=== PATIENT | male | born 1980 | race Caucasian/White ===

== ENCOUNTER → 2021-09-21 10:16 | Outpatient (BNVA) | payer BC, SELFPAY | PROVIDERS: PCP Nurse Practitioner Family; Visit Provider Internal Medicine | DX: Z51.81 Encounter for therapeutic drug level monitoring (principal); F33.9 Major depressive disorder, recurrent, unspecified; F14.90 Cocaine use, unspecified, uncomplicated; Z72.89 Other problems related to lifestyle | CPT/HCPCS: 80305 ==

== ENCOUNTER → 2021-10-14 13:11 | Outpatient (BNVA) | payer BC, SELFPAY | PROVIDERS: PCP Nurse Practitioner Family; Visit Provider Internal Medicine | DX: F10.10 Alcohol abuse, uncomplicated (principal); Z51.81 Encounter for therapeutic drug level monitoring; Z79.899 Other long term (current) drug therapy | CPT/HCPCS: 80305; 96372; J2315 ==

== ENCOUNTER → 2021-11-11 13:16 | Outpatient (BNVA) | payer BC, SELFPAY | PROVIDERS: Visit Provider Internal Medicine | DX: F10.10 Alcohol abuse, uncomplicated (principal); F33.9 Major depressive disorder, recurrent, unspecified | CPT/HCPCS: 80305; 96372; J2315 ==

== ENCOUNTER → 2021-12-09 13:18 | Outpatient (BNVA) | payer BC, SELFPAY | PROVIDERS: PCP Nurse Practitioner Family; Visit Provider Internal Medicine | DX: Z51.81 Encounter for therapeutic drug level monitoring (principal); F10.10 Alcohol abuse, uncomplicated | CPT/HCPCS: 80305; 96372; J2315 ==

== ENCOUNTER → 2022-01-27 10:13 | Outpatient (BNVA) | payer BC, SELFPAY | PROVIDERS: Visit Provider Internal Medicine | DX: Z51.81 Encounter for therapeutic drug level monitoring (principal); F10.10 Alcohol abuse, uncomplicated | CPT/HCPCS: 80305; 96372; J2315 ==

== ENCOUNTER → 2022-04-03 13:30 | Outpatient (BNVA) | payer BC, SELFPAY | PROVIDERS: PCP Nurse Practitioner Family; Visit Provider Internal Medicine | DX: F10.10 Alcohol abuse, uncomplicated (principal); Z51.81 Encounter for therapeutic drug level monitoring | CPT/HCPCS: J2315 ==

== ENCOUNTER 2022-04-13 07:30 | Outpatient (REF) | payer BC, SELFPAY ==
[2022-04-13 11:21] LABS: MANUAL DIFF FLAG NO
[2022-04-13 11:26] LABS: Basophils Absolute Auto 0.1 X10*3/uL (0.0-0.2); Basophils Percent Auto 0.7 % (0-2); Eosinophils Absolute Auto 0.1 X10*3/uL (0.0-0.4); Eosinophils Percent Auto 1.5 % (0-4); Hematocrit 47.5 % (42.0-52.0); Hemoglobin 16.3 g/dl (14.0-18.0); Imm Gran Abs Auto 0.04 X10*3/uL (0.00-0.03); Imm Gran Pct Auto 0.5 % (0.0-0.4); Lymphocytes Absolute Auto 2.3 X10*3/uL (1.2-4.9); Lymphocytes Percent Auto 30.1 % (20-40); Mean Corpuscular HGB Conc 34.3 g/dl (31.0-36.0); Mean Corpuscular Hemoglobin 31.2 pg (27.0-33.0); Mean Corpuscular Volume 90.8 fL (80.0-98.0); Mean Platelet Volume 9.6 fL (9.4-12.4); Monocytes Absolute Auto 0.9 X10*3/uL (0.1-1.2); Monocytes Percent Auto 12.1 % (2-11); Neutrophils Absolute Auto 4.2 x10*3/uL (2.0-8.3); Neutrophils Percent Auto 55.1 % (45-73); Platelet Count 271 X10*3/uL (160-400); Red Blood Count 5.23 X10*6/uL (4.60-5.80); Red Cell Distribution Width 13.7 % (11.0-16.0); White Blood Count 7.6 X10*3/uL (4.8-10.8)
[2022-04-13 11:51] LABS: Alanine Aminotransferase 28 U/L (0-40); Albumin Level 4.5 g/dL (3.5-5.0); Alkaline Phosphatase 68 U/L (39-117); Anion Gap 15 (12-20); Aspartate Amino Transferase 33 U/L (5-37); Bilirubin Direct 0.3 mg/dL (0.0-0.5); Bilirubin Total 1.2 mg/dL (0.0-1.0); Blood Urea Nitrogen 22 mg/dL (9-16); Calcium 9.2 mg/dL (8.4-10.2); Carbon Dioxide 22 mmol/L (22-29); Chloride 106 mmol/L (96-108); Cholesterol 196 mg/dL; Estimated Glomerular Filt Rate > 60; Glucose Fasting 81 mg/dL (60-99); HDL Cholesterol 34 mg/dL; LDL Cholesterol Calculated 147 mg/dl; Potassium 4.2 mmol/L (3.3-5.1); Sodium 139 mmol/L (135-145); Triglycerides 78 mg/dL
[2022-04-13 12:16] LABS: TSH reflex Free T4 0.99 uIU/mL (0.32-4.0)
[2022-04-13 13:46] LABS: Appearance Urine Clear; Color Urine Dark Yellow; Glucose Urine UA Negative (Negative); Leukocyte Esterase Urine Negative (Negative); Nitrite Urine Negative (Negative); PH 5.5 (5.0-8.0); Specific Gravity - Urine 1.025 (1.005-1.025); Urine Blood Negative (Negative); Urine Ketones 15 mg/dL (Negative); Urine Protein Negative (Neg-Trace)
== END 2022-04-13 07:31 | disposition home or self-care (01) ==
LOC: HO.HMGCLDS 07:30
PROVIDERS: PCP Nurse Practitioner Family; Visit Provider Nurse Practitioner Family
DX: Z00.00 Encounter for general adult medical examination without abnormal findings (principal); F10.10 Alcohol abuse, uncomplicated
CPT/HCPCS: 36415; 80053; 80061; 80076; 81003; 82248; 84443; 85025

== ENCOUNTER → 2022-04-28 15:02 | Outpatient (BNVA) | payer BC, SELFPAY | PROVIDERS: PCP Nurse Practitioner Family; Visit Provider Internal Medicine | DX: F10.10 Alcohol abuse, uncomplicated (principal); Z51.81 Encounter for therapeutic drug level monitoring; Z79.899 Other long term (current) drug therapy | CPT/HCPCS: J2315 ==

== ENCOUNTER → 2022-05-26 13:05 | Outpatient (BNVA) | payer BC, SELFPAY | PROVIDERS: PCP Nurse Practitioner Family; Visit Provider Internal Medicine | DX: Z51.81 Encounter for therapeutic drug level monitoring (principal); F10.10 Alcohol abuse, uncomplicated | CPT/HCPCS: 96372; J2315 ==

== ENCOUNTER 2022-06-14 23:08 | Emergency (ER) | payer BC, SELFPAY ==
[2022-06-14 23:18] VITALS: BP 162/100; PULSE 76; RESP 15; TEMP 36.9; O2SAT 100; BMI 26.4
[2022-06-14 23:35] LABS: Basophils Absolute Auto 0.1 X10*3/uL (0.0-0.2); Basophils Percent Auto 0.6 % (0-2); Eosinophils Absolute Auto 0.2 X10*3/uL (0.0-0.4); Eosinophils Percent Auto 1.9 % (0-4); Hematocrit 48.6 % (42.0-52.0); Imm Gran Abs Auto 0.03 X10*3/uL (0.00-0.03); Imm Gran Pct Auto 0.4 % (0.0-0.4); Lymphocytes Absolute Auto 3.8 X10*3/uL (1.2-4.9); Lymphocytes Percent Auto 43.9 % (20-40); MANUAL DIFF FLAG NO; Mean Corpuscular Hemoglobin 29.8 pg (27.0-33.0); Mean Corpuscular Volume 85.3 fL (80.0-98.0); Mean Platelet Volume 8.3 fL (9.4-12.4); Monocytes Absolute Auto 0.5 X10*3/uL (0.1-1.2); Monocytes Percent Auto 5.6 % (2-11); Neutrophils Absolute Auto 4.1 x10*3/uL (2.0-8.3); Neutrophils Percent Auto 47.6 % (45-73); Platelet Count 216 X10*3/uL (160-400); White Blood Count 8.6 X10*3/uL (4.8-10.8)
[2022-06-14 23:49] LABS: Anion Gap 20 (12-20); Blood Urea Nitrogen 18 mg/dL (9-16); Calcium 8.6 mg/dL (8.4-10.2); Carbon Dioxide 20 mmol/L (22-29); Chloride 110 mmol/L (96-108); Creatinine Clr Calc Pharmacy 107.7; Estimated Glomerular Filt Rate > 60; Ethanol 331 mg/dL; Glucose Random 108 mg/dL (60-115); Potassium 4.2 mmol/L (3.3-5.1); Sodium 146 mmol/L (135-145)
[2022-06-15 00:30] LABS: Alanine Aminotransferase 27 U/L (0-40); Albumin Level 4.4 g/dL (3.5-5.0); Alkaline Phosphatase 87 U/L (39-117); Aspartate Amino Transferase 28 U/L (5-37); Bilirubin Direct < 0.2 mg/dL (0.0-0.5); Bilirubin Total 0.3 mg/dL (0.0-1.0); Total Protein 7.1 g/dL (6.5-8.0)
[2022-06-15 00:35] VITALS: BP 139/83; PULSE 75; RESP 18; TEMP 36.7; O2SAT 95
[2022-06-15 00:38] LABS: Ammonia 36 umol/L (13-55)
[2022-06-15 01:06] LABS: Amphetamine Screen Urine Not Detected (Not Detect); Barbiturates, Urine Not Detected (Not Detect); Benzodiazepines Screen Urine Not Detected (Not Detect); Cannabinoid Screen Urine Not Detected (Not Detect); Cocaine Screen Urine Not Detected (Not Detect); Fentanyl, urine Not Detected (Not Detect); Opiate Screen Urine Not Detected (Not Detect); Phencyclidine Screen Urine Not Detected (Not Detect)
[2022-06-15 01:07] LABS: Appearance Urine Clear; Color Urine Yellow; Glucose Urine UA Negative (Negative); Leukocyte Esterase Urine Negative (Negative); Nitrite Urine Negative (Negative); PH 5.5 (5.0-9.0); Specific Gravity - Urine 1.025 (1.005-1.025); Urine Blood Negative (Negative); Urine Ketones Trace mg/dL (Negative); Urine Protein Negative (Neg-Trace)
--- NOTE | 2022-06-15 01:32 | ED.GENADULT ---
HPI - General Adult General Chief complaint: Altered Mental Status Stated complaint: vomiting, confusion, memory loss Time Seen by Provider: 06/15/22 01:31 Source: patient Mode of arrival: ambulatory Limitations: no limitations History of Present Illness HPI narrative: Patient history alcohol abuse been drinking heavily lately also taking Wellbutrin for depression, for last 2 days patient drinking heavy and unable to hold any solid stone vomiting multiple times has some epigastric pain Related Data Previous Rx's Medication Instructions Recorded finasteride 5 mg tablet 5 mg PO DAILY #90 tabs 09/09/20 clonidine HCl 0.1 mg tablet 0.1 mg PO TID PRN alcohol 04/03/22 withdrawal #21 tabs hydroxyzine pamoate 25 mg capsule 25 mg PO TID PRN itching #21 caps 04/03/22 (Vistaril) naltrexone microspheres 380 mg 380 mg IM Q4W 30 days #1 ea 04/21/22 intramuscular suspension,extended release (Vivitrol) acamprosate 333 mg tablet,delayed 666 mg PO TID 30 days #180 tabs 04/28/22 release naltrexone microspheres 380 mg 380 mg IM Q4W 30 days #1 ea 04/28/22 intramuscular suspension,extended release (Vivitrol) rosuvastatin 40 mg tablet 40 mg PO DAILY #90 tabs 04/30/22 bupropion HCl 150 mg 24 hr tablet, 150 mg PO QAM 90 days #90 tabs 05/04/22 extended release (Wellbutrin XL) amoxicillin 875 mg-potassium 1 tab PO BID 10 days #20 tabs 05/22/22 clavulanate 125 mg tablet lorazepam 1 mg tablet (Ativan) 1 mg PO TID PRN alcohol withdrawal 06/15/22 #14 tabs ondansetron 4 mg disintegrating 4 mg PO Q6-8H PRN nausea and 06/15/22 tablet vomiting #15 tabs pantoprazole 40 mg tablet,delayed 40 mg PO DAILY #30 tabs 06/15/22 release (Protonix) Allergies Allergy/AdvReac Type Severity Reaction Status Date / Time No Known Allergies Allergy Verified 06/14/22 23:22 Review of Systems Review of Systems: Yes all other systems are reviewed and are negative PMFSH Past Medical History Medical History Alcohol abuse Alcohol withdrawal Depression, major, recurrent Family History Family History Brother Substance use disorder Social History Social History Housing: House Patient Tobacco Use Status: Never used Tobacco e-Cigarette/Vaping Use: Never Used Advance Directives: No Advance Directives Information Provided: No service: No Current occupational status: employed Cognitive needs: No Hearing needs: No Vision needs: No Physical Exam ED Vital Signs: Vital Signs - 24 hr 06/14/22 23:18 06/15/22 00:35 06/15/22 02:00 Temperature 98.5 F 98.1 F 98.0 F Pulse Rate 76 75 63 Respiratory Rate 15 18 16 Blood Pressure 162/100 H 139/83 145/96 H Pulse Oximetry 100 95 96 Oxygen Delivery Method Room Air Room Air Room Air 06/15/22 03:53 Temperature 97.7 F Pulse Rate 66 Respiratory Rate 18 Blood Pressure 123/52 L Pulse Oximetry 98 Oxygen Delivery Method Room Air BMI result Body Mass Index 26.4 Appearance: Alert. Oriented X3. No acute distress. and she Eyes: no pallor or icterus ENT: Pharynx normal. Oral Mucosa moist Neck: Normal inspection. Neck supple. CVS: Normal heart rate and rhythm. Pulses normal. Respiratory: No respiratory distress. Equal air entry bilateral, no wheezing/rales/rhonchi Abdomen: Soft , epigastric tenderness, Bowel sounds are present, no mass palpable, no CVA tenderness Skin: Skin warm and dry. Normal skin color. Normal skin turgor. Extremities: No lower extremity edema. No calf tenderness Neuro: Oriented X 3. No motor deficit. No sensory deficit.No cerebellar signs , cranial nerves II-XII intact Medical Decision Making MDM Narrative Medical decision making narrative: patient alcoholic does not want to go to detox will give IV fluids symptomatic treatment plan to discharge home Lab Data Lab results reviewed: Yes I reviewed the patient's lab results. Result diagrams: 06/14/22 23:28 06/14/22 23:28 Labs: Lab Results 06/14/22 06/14/22 06/14/22 Range/Units 23:28 23:28 23:28 WBC 8.6 (4.8-10.8) X10*3/uL RBC 5.70 (4.60-5.80) X10*6/uL Hgb 17.0 (14.0-18.0) g/dl Hct 48.6 (42.0-52.0) % MCV 85.3 (80.0-98.0) fL MCH 29.8 (27.0-33.0) pg MCHC 35.0 (31.0-36.0) g/dl RDW 12.0 (11.0-16.0) % Plt Count 216 (160-400) X10*3/uL MPV 8.3 L (9.4-12.4) fL Immature Gran % (Auto) 0.4 (0.0-0.4) % Neut % (Auto) 47.6 (45-73) % Lymph % (Auto) 43.9 H (20-40) % [place] % (Auto) 5.6 (2-11) % Eos % (Auto) 1.9 (0-4) % Baso % (Auto) 0.6 (0-2) % Lymph # (Auto) 3.8 (1.2-4.9) X10*3/uL [place] # (Auto) 0.5 (0.1-1.2) X10*3/uL Eos # (Auto) 0.2 (0.0-0.4) X10*3/uL Baso # (Auto) 0.1 (0.0-0.2) X10*3/uL Abs Immat Gran (auto) 0.03 (0.00-0.03) X10*3/uL Absolute Neuts (auto) 4.1 (2.0-8.3) x10*3/uL Absolute Nucleated RBC 0.000 (0.0-0.012) X10*3/uL Nucleated RBC % (auto) 0.0 (0.0-0.2) /100WBC Sodium 146 H (135-145) mmol/L Potassium 4.2 (3.3-5.1) mmol/L Chloride 110 H (96-108) mmol/L Carbon Dioxide 20 L (22-29) mmol/L Anion Gap 20 (12-20) BUN 18 H (9-16) mg/dL Creatinine 1.03 (0.5-1.4) mg/dL Estim Creat Clear Calc 107.7 Estimated GFR > 60 Random Glucose 108 (60-115) mg/dL Calcium 8.6 D (8.4-10.2) mg/dL Magnesium 2.0 (1.6-2.6) mg/dL Total Bilirubin 0.3 (0.0-1.0) mg/dL Direct Bilirubin < 0.2 (0.0-0.5) mg/dL AST 28 (5-37) U/L ALT 27 (0-40) U/L Alkaline Phosphatase 87 D (39-117) U/L Ammonia 36 (13-55) umol/L Total Protein 7.1 (6.5-8.0) g/dL Albumin 4.4 (3.5-5.0) g/dL Lipase 19 (8-78) U/L Urine Color Urine Appearance Urine pH (5.0-9.0) Ur Specific Ev[place]eline (1.005-1.025) Urine Protein (Neg-Trace) mg/dL Urine Glucose (UA) (Negative) mg/dL Urine Ketones (Negative) mg/dL Urine Blood (Negative) Urine Nitrite (Negative) Ur Leukocyte Esterase (Negative) Urine Opiates Screen (Not Detect) Urine Fentanyl Screen (Not Detect) Ur Barbiturates Screen (Not Detect) Ur Phencyclidine Scrn (Not Detect) Ur Amphetamines Screen (Not Detect) U Benzodiazepines Scrn (Not Detect) Urine Cocaine Screen (Not Detect) U Marijuana (THC) Screen (Not Detect) Ethyl Alcohol 331 H* mg/dL 06/15/22 06/15/22 Range/Units 00:40 00:40 WBC (4.8-10.8) X10*3/uL RBC (4.60-5.80) X10*6/uL Hgb (14.0-18.0) g/dl Hct (42.0-52.0) % MCV (80.0-98.0) fL MCH (27.0-33.0) pg MCHC (31.0-36.0) g/dl RDW (11.0-16.0) % Plt Count (160-400) X10*3/uL MPV (9.4-12.4) fL Immature Gran % (Auto) (0.0-0.4) % Neut % (Auto) (45-73) % Lymph % (Auto) (20-40) % [place] % (Auto) (2-11) % Eos % (Auto) (0-4) % Baso % (Auto) (0-2) % Lymph # (Auto) (1.2-4.9) X10*3/uL [place] # (Auto) (0.1-1.2) X10*3/uL Eos # (Auto) (0.0-0.4) X10*3/uL Baso # (Auto) (0.0-0.2) X10*3/uL Abs Immat Gran (auto) (0.00-0.03) X10*3/uL Absolute Neuts (auto) (2.0-8.3) x10*3/uL Absolute Nucleated RBC (0.0-0.012) X10*3/uL Nucleated RBC % (auto) (0.0-0.2) /100WBC Sodium (135-145) mmol/L Potassium (3.3-5.1) mmol/L Chloride (96-108) mmol/L Carbon Dioxide (22-29) mmol/L Anion Gap (12-20) BUN (9-16) mg/dL Creatinine (0.5-1.4) mg/dL Estim Creat Clear Calc Estimated GFR Random Glucose (60-115) mg/dL Calcium (8.4-10.2) mg/dL Magnesium (1.6-2.6) mg/dL Total Bilirubin (0.0-1.0) mg/dL Direct Bilirubin (0.0-0.5) mg/dL AST (5-37) U/L ALT (0-40) U/L Alkaline Phosphatase (39-117) U/L Ammonia (13-55) umol/L Total Protein (6.5-8.0) g/dL Albumin (3.5-5.0) g/dL Lipase (8-78) U/L Urine Color Yellow Urine Appearance Clear Urine pH 5.5 (5.0-9.0) Ur Specific Ev[place]eline 1.025 (1.005-1.025) Urine Protein Negative (Neg-Trace) mg/dL Urine Glucose (UA) Negative (Negative) mg/dL Urine Ketones Trace (Negative) mg/dL Urine Blood Negative (Negative) Urine Nitrite Negative (Negative) Ur Leukocyte Esterase Negative (Negative) Urine Opiates Screen Not Detected (Not Detect) Urine Fentanyl Screen Not Detected (Not Detect) Ur Barbiturates Screen Not Detected (Not Detect) Ur Phencyclidine Scrn Not Detected (Not Detect) Ur Amphetamines Screen Not Detected (Not Detect) U Benzodiazepines Scrn Not Detected (Not Detect) Urine Cocaine Screen Not Detected (Not Detect) U Marijuana (THC) Screen Not Detected (Not Detect) Ethyl Alcohol mg/dL Discharge Plan Discharge Clinical Impression: Alcohol abuse Patient Disposition: Home, Self-Care Instructions: Alcohol Use Disorder (ED) Additional Instructions: stop drinking alcohol Ativan for withdrawal and anxiety follow-up with detox Prescriptions: New lorazepam [Ativan] 1 mg tablet 1 mg PO TID PRN (Reason: alcohol withdrawal) Qty: 14 0RF pantoprazole [Protonix] 40 mg tablet,delayed release (DR/EC) 40 mg PO DAILY Qty: 30 0RF ondansetron 4 mg tablet,disintegrating 4 mg PO Q6-8H PRN (Reason: nausea and vomiting) Qty: 15 0RF No Action finasteride 5 mg tablet 5 mg PO DAILY Qty: 90 2RF Vivitrol 380 mg suspension,extended rel recon 380 mg IM Q4W 30 Days Qty: 1 5RF rosuvastatin 40 mg tablet 40 mg PO DAILY Qty: 90 0RF amoxicillin-pot clavulanate 875-125 mg tablet 1 tab PO BID 10 Days Qty: 20 0RF bupropion HCl [Wellbutrin XL] 150 mg tablet extended release 24 hr 150 mg PO QAM 90 Days Qty: 90 0RF clonidine HCl 0.1 mg tablet 0.1 mg PO TID PRN (Reason: alcohol withdrawal) Qty: 21 1RF hydroxyzine pamoate [Vistaril] 25 mg capsule 25 mg PO TID PRN (Reason: itching) Qty: 21 0RF Vivitrol 380 mg suspension,extended rel recon 380 mg IM Q4W 30 Days Qty: 1 5RF acamprosate 333 mg tablet,delayed release (DR/EC) 666 mg PO TID 30 Days Qty: 180 5RF
[2022-06-15] MEDS: 0.9 % Sodium Chloride 1,000 ML 999 ML IV ×2 (01:53→02:46)
[2022-06-15] MEDS: Midazolam HCl/PF 2 MG/2 ML VIAL 1 MG IVPUSH (01:53)
[2022-06-15] MEDS: Famotidine/PF 20 MG/2 ML VIAL IVPUSH (01:54)
[2022-06-15] MEDS: ondansetron HCL 4 MG/2 ML VIAL IVPUSH (01:54)
--- NOTE | 2022-06-15 01:57 | PC.NURSE ---
pt a&ox3, vss, 20G IV placed left hand, 1L NS running, medicated per provider order. no new orders at this time.
[2022-06-15 02:00] VITALS: BP 145/96; PULSE 63; RESP 16; TEMP 36.7; O2SAT 96
[2022-06-15 02:02] LABS: Lipase 19 U/L (8-78)
--- NOTE | 2022-06-15 02:42 | PC.NURSE ---
pt a&ox3, hypertensive, other vss, CIWA = 0, pt resting comfortably. no new orders at this time.
[2022-06-15 03:53] VITALS: BP 123/52; PULSE 66; RESP 18; TEMP 36.5; O2SAT 98
--- NOTE | 2022-06-15 05:05 | PC.NURSE ---
pt sleeping, no sign of distress. Reviewed discharge instructions with pt. pt verbalized understanding.
[2022-06-15 05:45] VITALS: BP 112/65; PULSE 61; RESP 16; TEMP 36.7; O2SAT 98
== END 2022-06-15 05:46 | disposition home or self-care (01) ==
PROVIDERS: Emergency Provider Internal Medicine; PCP Nurse Practitioner Family
DX: F10.10 Alcohol abuse, uncomplicated (principal); F33.1 Major depressive disorder, recurrent, moderate; Y90.8 Blood alcohol level of 240 mg/100 ml or more; Z20.822 Contact with and (suspected) exposure to COVID-19; Z79.899 Other long term (current) drug therapy
CPT/HCPCS: 36415; 80048; 80076; 80307; 81003; 82077; 82140; 83690; 83735; 85025; 96374; 96375; 99284; 99285; J2250; J2405

== ENCOUNTER 2022-06-16 20:23 | Emergency (ER) | payer BC, SELFPAY ==
--- NOTE | 2022-06-16 20:26 | ED.ALCOHOL ---
HPI - Alcohol General Chief Complaint: ETOH/Substance Use Stated Complaint: s12 etoh Time Seen by Provider: 06/16/22 20:26 Source: patient and EMS Mode of arrival: EMS Limitations: altered mental status (Intoxicated) History of Present Illness HPI narrative: 42-year-old male presents via EMS and police escort under Section 12 for ETOH intoxication. Patient's family called for a wellness check, patient has been drinking excessively on a daily basis. Drinks 3 pt of vodka after being discharged from this facility on the morning of 06/16/2022. Patient's family is concerned about his well-being. Patient is visibly intoxicated, slurring his words and smells of alcohol. Patient needs multiple redirections to answer questions, however he is polite and cooperative. MD complaint: alcohol intoxication and alcohol dependence Last drink: Just prior to admission Chronic alcohol use: Yes Previous visits for alcohol intoxication: Yes Recent trauma: No Associated symptoms: denies other symptoms Treatments prior to arrival: none Related Data Previous Rx's Medication Instructions Recorded finasteride 5 mg tablet 5 mg PO DAILY #90 tabs 09/09/20 clonidine HCl 0.1 mg tablet 0.1 mg PO TID PRN alcohol 04/03/22 withdrawal #21 tabs hydroxyzine pamoate 25 mg capsule 25 mg PO TID PRN itching #21 caps 04/03/22 (Vistaril) naltrexone microspheres 380 mg 380 mg IM Q4W 30 days #1 ea 04/21/22 intramuscular suspension,extended release (Vivitrol) acamprosate 333 mg tablet,delayed 666 mg PO TID 30 days #180 tabs 04/28/22 release naltrexone microspheres 380 mg 380 mg IM Q4W 30 days #1 ea 04/28/22 intramuscular suspension,extended release (Vivitrol) rosuvastatin 40 mg tablet 40 mg PO DAILY #90 tabs 04/30/22 bupropion HCl 150 mg 24 hr tablet, 150 mg PO QAM 90 days #90 tabs 05/04/22 extended release (Wellbutrin XL) amoxicillin 875 mg-potassium 1 tab PO BID 10 days #20 tabs 05/22/22 clavulanate 125 mg tablet lorazepam 1 mg tablet (Ativan) 1 mg PO TID PRN alcohol withdrawal 06/15/22 #14 tabs ondansetron 4 mg disintegrating 4 mg PO Q6-8H PRN nausea and 06/15/22 tablet vomiting #15 tabs pantoprazole 40 mg tablet,delayed 40 mg PO DAILY #30 tabs 06/15/22 release (Protonix) Allergies Allergy/AdvReac Type Severity Reaction Status Date / Time No Known Allergies Allergy Verified 06/14/22 23:22 Review of Systems Review of Systems: Yes Unobtainable due to mental status (Intoxicated) [facility] Past Medical History Attestation statement: The following information was validated with the patient. Source: old records reviewed Medical History Alcohol abuse Alcohol withdrawal Depression, major, recurrent Family History Family History Brother Substance use disorder Social History Social History Housing: House Alcohol intake: current Alcohol intake frequency: 3 or more drinks per day Alcohol type: hard liquor Patient Tobacco Use Status: Never used Tobacco e-Cigarette/Vaping Use: Never Used Use of substances other than those prescribed or required for medical reasons: No Advance Directives: No service: No Current occupational status: employed Cognitive needs: No Hearing needs: No Vision needs: No Physical Exam ED Vital Signs: Vital Signs - 24 hr 06/16/22 20:54 06/16/22 20:59 06/16/22 22:02 Temperature 98.5 F 98.5 F Pulse Rate 80 77 75 Respiratory Rate 17 77 H 16 Blood Pressure 148/96 H 148/96 H 137/84 Pulse Oximetry 97 97 96 Oxygen Delivery Method Room Air Room Air Room Air 06/17/22 00:53 06/17/22 03:09 06/17/22 03:51 Temperature 98.1 F 98.2 F 98.0 F Pulse Rate 67 67 63 Respiratory Rate 17 12 14 Blood Pressure 114/63 117/63 121/63 Pulse Oximetry 95 96 93 Oxygen Delivery Method Room Air Room Air Room Air 06/17/22 05:48 Temperature 98.9 F Pulse Rate 69 Respiratory Rate 17 Blood Pressure 117/67 Pulse Oximetry 95 Oxygen Delivery Method Room Air BMI result Body Mass Index 27.2 Appearance: Alert. Intoxicated. Eyes: Pupils equal, round and reactive to light. ENT: Pharynx normal. Neck: Normal inspection. Neck supple. CVS: Normal heart rate and rhythm. Pulses normal. Respiratory: No respiratory distress. Breath sounds normal. Abdomen: Soft and nontender. Skin: Skin warm and dry. Normal skin color. Normal skin turgor. Extremities: No lower extremity edema. Gait balanced and coordinated. Neuro: No motor deficit. No sensory deficit. Cranial nerves 2-12 intact. Course Course Course Narrative: 42-year-old male presents via EMS with police escort under section 12 for EtOH abuse. Patient's family called for wellness check, and states that he has been drinking excessively and they are concerned about finding him ? because of alcohol?. Patient was evaluated at this facility and discharged on 06/16/2020 to for similar circumstances. At this time will order blood alcohol level, as patient's family may consider Section 35. Patient states that he does not know why he drinks, denies suicidal and homicidal ideation, and is not interested in detox at this time. Patient states that he withdraws from alcohol, and may have seizure activities. At this time will place seizure pads, and cardiac monitoring we will give some Versed as we do not have Ativan or Valium at this time. Patient does not want phenobarbital as he does not want to be admitted for EtOH withdrawal. 22:00 lab values are within normal limits. ETOH 295. Seizure precautions are maintained. I again approaches patient regarding detox, patient is not interested in alcohol withdrawal treat with phenobarbital. Plan of care is to metabolize to [place]. Patient is not suicidal or homicidal, patient's family is attempting section 35. Physician observation at this time. MDM - Alcohol Differential Diagnosis Differential diagnosis: Likely alcohol dependence, alcohol withdrawal delirium, hypomagnesemia, alcohol intoxication, alcohol ketoacidosis and alcohol withdrawal syndrome Medical Records Attestation: I reviewed the patient's medical records. Lab Data Attestation: I reviewed the patient's lab results. Result diagrams: 06/16/22 21:14 06/16/22 21:14 Labs: Lab Results 06/16/22 06/16/22 06/16/22 Range/Units 21:14 21:14 21:14 WBC 7.8 (4.8-10.8) X10*3/uL RBC 5.88 H (4.60-5.80) X10*6/uL Hgb 17.4 (14.0-18.0) g/dl Hct 49.5 (42.0-52.0) % MCV 84.2 (80.0-98.0) fL MCH 29.6 (27.0-33.0) pg MCHC 35.2 (31.0-36.0) g/dl RDW 11.9 (11.0-16.0) % Plt Count 203 (160-400) X10*3/uL MPV 8.0 L (9.4-12.4) fL Immature Gran % (Auto) 0.4 (0.0-0.4) % Neut % (Auto) 58.8 (45-73) % Lymph % (Auto) 35.3 (20-40) % [place] % (Auto) 4.4 (2-11) % Eos % (Auto) 0.6 (0-4) % Baso % (Auto) 0.5 (0-2) % Lymph # (Auto) 2.8 (1.2-4.9) X10*3/uL [place] # (Auto) 0.3 (0.1-1.2) X10*3/uL Eos # (Auto) 0.1 (0.0-0.4) X10*3/uL Baso # (Auto) 0.0 (0.0-0.2) X10*3/uL Abs Immat Gran (auto) 0.03 (0.00-0.03) X10*3/uL Absolute Neuts (auto) 4.6 (2.0-8.3) x10*3/uL Absolute Nucleated RBC 0.000 (0.0-0.012) X10*3/uL Nucleated RBC % (auto) 0.0 (0.0-0.2) /100WBC Sodium 144 (135-145) mmol/L Potassium 4.0 (3.3-5.1) mmol/L Chloride 105 (96-108) mmol/L Carbon Dioxide 25 (22-29) mmol/L Anion Gap 18 (12-20) BUN 12 (9-16) mg/dL Creatinine 0.93 (0.5-1.4) mg/dL Estim Creat Clear Calc 119.3 Estimated GFR > 60 Random Glucose 90 (60-115) mg/dL Calcium 8.9 (8.4-10.2) mg/dL Magnesium 1.9 (1.6-2.6) mg/dL Total Bilirubin 0.5 (0.0-1.0) mg/dL Direct Bilirubin 0.2 (0.0-0.5) mg/dL AST 37 (5-37) U/L ALT 28 (0-40) U/L Alkaline Phosphatase 80 (39-117) U/L Total Protein 7.3 (6.5-8.0) g/dL Albumin 4.6 (3.5-5.0) g/dL Lipase 14 (8-78) U/L Ethyl Alcohol 295 mg/dL COVID-19 (RICHARD) Negative (Negative) COVID-19 Clin Com See Note Discharge Plan Discharge Clinical Impression: Depression, major, recurrent, Alcohol abuse, Alcohol withdrawal Patient Disposition: Still a Patient Instructions: Alcohol Intoxication (ED), Abuse of Alcohol (ED), Alcohol Use Disorder (ED) Additional Instructions: Consider detox. It could save your life. Thank you for choosing this emergency department for evaluation. Please follow-up with primary care physician as needed. Return to the emergency department for any new, concerning, or worsening symptoms. Prescriptions: No Action finasteride 5 mg tablet 5 mg PO DAILY Qty: 90 2RF Vivitrol 380 mg suspension,extended rel recon 380 mg IM Q4W 30 Days Qty: 1 5RF rosuvastatin 40 mg tablet 40 mg PO DAILY Qty: 90 0RF amoxicillin-pot clavulanate 875-125 mg tablet 1 tab PO BID 10 Days Qty: 20 0RF lorazepam [Ativan] 1 mg tablet 1 mg PO TID PRN (Reason: alcohol withdrawal) Qty: 14 0RF pantoprazole [Protonix] 40 mg tablet,delayed release (DR/EC) 40 mg PO DAILY Qty: 30 0RF ondansetron 4 mg tablet,disintegrating 4 mg PO Q6-8H PRN (Reason: nausea and vomiting) Qty: 15 0RF bupropion HCl [Wellbutrin XL] 150 mg tablet extended release 24 hr 150 mg PO QAM 90 Days Qty: 90 0RF clonidine HCl 0.1 mg tablet 0.1 mg PO TID PRN (Reason: alcohol withdrawal) Qty: 21 1RF hydroxyzine pamoate [Vistaril] 25 mg capsule 25 mg PO TID PRN (Reason: itching) Qty: 21 0RF Vivitrol 380 mg suspension,extended rel recon 380 mg IM Q4W 30 Days Qty: 1 5RF acamprosate 333 mg tablet,delayed release (DR/EC) 666 mg PO TID 30 Days Qty: 180 5RF
[2022-06-16 20:54] VITALS: BP 148/93; BP 148/96; PULSE 77; PULSE 80; RESP 17; TEMP 36.9; O2SAT 97; O2SAT 98; BMI 27.2
--- NOTE | 2022-06-16 20:54 | PC.NURSE ---
Pt. on monitoring manager at this time
--- NOTE | 2022-06-16 20:54 | PC.NURSE ---
Seizure precautions in place
[2022-06-16 20:59] VITALS: BP 148/96; PULSE 77; RESP 77; TEMP 36.9; O2SAT 97
--- NOTE | 2022-06-16 21:01 | PC.NURSE ---
Pt. reports that he has no hx. (to his knowledge) of an ETOH withdrawal seizure
--- NOTE | 2022-06-16 21:13 | MHC.RECOVSUP ---
? Reason for consult:ETOH o? Current location:ED06H? o? Identified substance use concern:? -? Support ? Intervention: ? Plan: o? Follow up tomorrow? ? Additional information:PT has been in the restroom vomiting since his arrival [facility] wasn't able to speak with pt, please follow up tomorrow.
[2022-06-16 21:20] LABS: MANUAL DIFF FLAG NO
[2022-06-16 21:22] LABS: Basophils Percent Auto 0.5 % (0-2); Eosinophils Absolute Auto 0.1 X10*3/uL (0.0-0.4); Eosinophils Percent Auto 0.6 % (0-4); Hematocrit 49.5 % (42.0-52.0); Hemoglobin 17.4 g/dl (14.0-18.0); Imm Gran Abs Auto 0.03 X10*3/uL (0.00-0.03); Imm Gran Pct Auto 0.4 % (0.0-0.4); Lymphocytes Absolute Auto 2.8 X10*3/uL (1.2-4.9); Lymphocytes Percent Auto 35.3 % (20-40); Mean Corpuscular HGB Conc 35.2 g/dl (31.0-36.0); Mean Corpuscular Hemoglobin 29.6 pg (27.0-33.0); Mean Corpuscular Volume 84.2 fL (80.0-98.0); Monocytes Absolute Auto 0.3 X10*3/uL (0.1-1.2); Monocytes Percent Auto 4.4 % (2-11); Neutrophils Absolute Auto 4.6 x10*3/uL (2.0-8.3); Neutrophils Percent Auto 58.8 % (45-73); Platelet Count 203 X10*3/uL (160-400); Red Blood Count 5.88 X10*6/uL (4.60-5.80); Red Cell Distribution Width 11.9 % (11.0-16.0); White Blood Count 7.8 X10*3/uL (4.8-10.8)
[2022-06-16 21:34] LABS: COVID-19 Test Negative (Negative)
[2022-06-16] MEDS: Midazolam HCl/PF 2 MG/2 ML VIAL IVPUSH (21:34)
[2022-06-16 21:38] LABS: Alanine Aminotransferase 28 U/L (0-40); Albumin Level 4.6 g/dL (3.5-5.0); Alkaline Phosphatase 80 U/L (39-117); Anion Gap 18 (12-20); Aspartate Amino Transferase 37 U/L (5-37); Bilirubin Direct 0.2 mg/dL (0.0-0.5); Bilirubin Total 0.5 mg/dL (0.0-1.0); Blood Urea Nitrogen 12 mg/dL (9-16); Calcium 8.9 mg/dL (8.4-10.2); Carbon Dioxide 25 mmol/L (22-29); Chloride 105 mmol/L (96-108); Creatinine Clr Calc Pharmacy 119.3; Estimated Glomerular Filt Rate > 60; Ethanol 295 mg/dL; Glucose Random 90 mg/dL (60-115); Lipase 14 U/L (8-78); Magnesium 1.9 mg/dL (1.6-2.6); Sodium 144 mmol/L (135-145); Total Protein 7.3 g/dL (6.5-8.0)
--- OUTSIDE RECORDS SUMMARY | 2022-06-16 21:39 | XMS_ITS | Continuity of Care Document ---
:1980 Author Organization [facility] Address [address] [place] [id number] Care Team Providers Name Role Phone Harley VALENCIA, Marlon Burnette Primary Care Physician Encounter [facility] Date(s): 08/08/19 - 08/08/[address] [address]- [facility] Attending Physician: Aurelio Nunez MD Allergies, Adverse Reactions, Alerts Substance Reaction Severity Status NKA Active Immunizations Given and Recorded Vaccine Date Status Refusal Reason influenza virus vaccine, inactivated1 05/20/15 Recorded influenza virus vaccine, inactivated 08/18/14 Given Tet/Diphth/Acel, Pertussis (oldterm) 12/17/06 Given Hepatitis A Vaccine (oldterm) 12/17/06 Given 1Location History: 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 Start Date: 02/23/15 Stop Date: 02/18/16 Status: OrderedIbuprofen Maintenance, prn, 07/20/15 8:28:30 Start Date: 07/20/15 Status: OrderedMultivitamin By Mouth, Daily, 0 Refills, Maintenance, 07/20/15 8:27:25 Start Date: 07/20/15 Status: OrderedOmega-3 Polyunsaturated Fatty Acids By Mouth, 0 Refills, Maintenance, 07/20/15 8:27:16 Start Date: 07/20/15 Status: Ordered Problem List Condition Effective Dates Status Health Status Informant Alopecia(Confirmed) Active Vitamin B12 deficiency(Confirmed) Active History of ETOH abuse(Confirmed) Active History of substance abuse(Confirmed)1 Active Hypercholesteremia(Confirmed) Active 1Cocaine Social History Social History Type Response Smoking Status Former smoker; Other: pt has quit for a month now; entered on: 08/23/15 Sex
[2022-06-16 22:02] VITALS: BP 137/84; PULSE 75; RESP 16; O2SAT 96
[2022-06-17 00:53] VITALS: BP 114/63; PULSE 67; RESP 17; TEMP 36.7; O2SAT 95
[2022-06-17 03:09] VITALS: BP 117/63; PULSE 67; RESP 12; TEMP 36.8; O2SAT 96
--- NOTE | 2022-06-17 03:46 | PC.NURSE ---
Awaiting order from Marielle Funez NP for Ativan 2mg Q2hrs PRN
[2022-06-17 03:51] VITALS: BP 121/63; PULSE 63; RESP 14; TEMP 36.7; O2SAT 93
[2022-06-17] MEDS: LORazepam 1 MG TABLET 2 MG PO (03:52)
[2022-06-17] MEDS: Ondansetron ODT 4 MG TAB.RAPDIS TRANSLINGU (04:14)
[2022-06-17 05:48] VITALS: BP 117/67; PULSE 69; RESP 17; TEMP 37.2; O2SAT 95
== END 2022-06-17 06:58 | disposition home or self-care (01) ==
PROVIDERS: Nurse Practitioner Family; Emergency Provider Internal Medicine; PCP Nurse Practitioner Family
DX: F33.1 Major depressive disorder, recurrent, moderate (principal); F10.239 Alcohol dependence with withdrawal, unspecified; Y90.8 Blood alcohol level of 240 mg/100 ml or more; Z20.822 Contact with and (suspected) exposure to COVID-19; Z79.899 Other long term (current) drug therapy
CPT/HCPCS: 80048; 80076; 82077; 83690; 83735; 85025; 87635; 96374; 99285; J2250

== ENCOUNTER → 2022-06-28 11:29 | Outpatient (BNVA) | payer BC, SELFPAY | PROVIDERS: PCP Nurse Practitioner Family; Visit Provider Internal Medicine | DX: F10.10 Alcohol abuse, uncomplicated (principal); Z51.81 Encounter for therapeutic drug level monitoring; Z79.899 Other long term (current) drug therapy | CPT/HCPCS: 96372; J2315 ==

== ENCOUNTER → 2022-07-28 10:02 | Outpatient (BNVA) | payer BC, SELFPAY | PROVIDERS: PCP Nurse Practitioner Family; Visit Provider Internal Medicine | DX: F10.939 Alcohol use, unspecified with withdrawal, unspecified (principal) | CPT/HCPCS: 96372; J2315 ==

== ENCOUNTER → 2022-08-28 13:17 | Outpatient (BNVA) | payer BC, SELFPAY | PROVIDERS: PCP Nurse Practitioner Family; Visit Provider Nurse Practitioner Psychiatric/Mental Health | DX: F10.20 Alcohol dependence, uncomplicated (principal); Z51.81 Encounter for therapeutic drug level monitoring; Z79.899 Other long term (current) drug therapy | CPT/HCPCS: 80305; 96372 ==

== ENCOUNTER → 2022-09-22 12:54 | Outpatient (BNVA) | payer BC, SELFPAY | PROVIDERS: PCP Nurse Practitioner Family; Visit Provider Nurse Practitioner Psychiatric/Mental Health | DX: Z51.81 Encounter for therapeutic drug level monitoring (principal); F10.20 Alcohol dependence, uncomplicated | CPT/HCPCS: 80305; 96372 ==

== ENCOUNTER → 2022-10-20 15:02 | Outpatient (BNVA) | payer BC, SELFPAY | PROVIDERS: PCP Nurse Practitioner Family; Visit Provider Nurse Practitioner Psychiatric/Mental Health | DX: Z51.81 Encounter for therapeutic drug level monitoring (principal); F10.20 Alcohol dependence, uncomplicated | CPT/HCPCS: 96372 ==

== ENCOUNTER → 2022-11-17 13:02 | Outpatient (BNVA) | payer BC, SELFPAY | PROVIDERS: PCP Nurse Practitioner Family; Visit Provider Nurse Practitioner Psychiatric/Mental Health | DX: F10.20 Alcohol dependence, uncomplicated (principal); Z51.81 Encounter for therapeutic drug level monitoring; Z79.899 Other long term (current) drug therapy | CPT/HCPCS: 80305; 96372 ==

== ENCOUNTER → 2022-12-29 10:53 | Outpatient (BNVA) | payer BC, SELFPAY | PROVIDERS: PCP Nurse Practitioner Family; Visit Provider Nurse Practitioner Psychiatric/Mental Health | DX: F10.20 Alcohol dependence, uncomplicated (principal); F33.9 Major depressive disorder, recurrent, unspecified; Z79.899 Other long term (current) drug therapy | CPT/HCPCS: 96372 ==

== ENCOUNTER → 2023-01-25 10:53 | Outpatient (BNVA) | payer BC, SELFPAY | PROVIDERS: PCP Nurse Practitioner Family; Visit Provider Nurse Practitioner Psychiatric/Mental Health | DX: F10.20 Alcohol dependence, uncomplicated (principal); Z79.899 Other long term (current) drug therapy | CPT/HCPCS: 96372 ==

== ENCOUNTER → 2023-02-21 13:18 | Outpatient (BNVA) | payer BC, SELFPAY | PROVIDERS: PCP Nurse Practitioner Family; Visit Provider Nurse Practitioner Psychiatric/Mental Health | DX: F10.20 Alcohol dependence, uncomplicated (principal) | CPT/HCPCS: 96372 ==

== ENCOUNTER 2023-03-23 12:51 | Outpatient (AMB) | payer BC, SELFPAY ==
--- NOTE | 2023-03-23 12:59 | AM.OFFVISNUR ---
Intake Intake Visit Reasons: mervin inj Allergies No Known Allergies Allergy (Verified 02/21/23 13:25) Coding Diagnoses
== END 2023-03-23 13:33 | disposition home or self-care (01) ==
LOC: HO.HCC 12:51
PROVIDERS: PCP Nurse Practitioner Family; Visit Provider Nurse Practitioner Psychiatric/Mental Health
DX: F10.20 Alcohol dependence, uncomplicated (principal)
CPT/HCPCS: J2315

== ENCOUNTER → 2023-03-23 12:51 | Outpatient (BNVA) | payer BC, SELFPAY | PROVIDERS: PCP Nurse Practitioner Family; Visit Provider Nurse Practitioner Psychiatric/Mental Health | DX: F10.20 Alcohol dependence, uncomplicated (principal); Z51.81 Encounter for therapeutic drug level monitoring; Z79.899 Other long term (current) drug therapy | CPT/HCPCS: 96372 ==

== ENCOUNTER 2023-04-20 10:14 | Outpatient (REF) | payer BC, SELFPAY ==
[2023-04-20 13:11] LABS: MANUAL DIFF FLAG NO
[2023-04-20 13:26] LABS: Basophils Absolute Auto 0.1 X10*3/uL (0.0-0.2); Basophils Percent Auto 0.7 % (0-2); Eosinophils Absolute Auto 0.2 X10*3/uL (0.0-0.4); Eosinophils Percent Auto 2.4 % (0-4); Hematocrit 52.5 % (42.0-52.0); Imm Gran Abs Auto 0.04 X10*3/uL (0.00-0.03); Imm Gran Pct Auto 0.5 % (0.0-0.4); Lymphocytes Percent Auto 24.8 % (20-40); Mean Corpuscular HGB Conc 34.3 g/dl (31.0-36.0); Mean Corpuscular Volume 87.4 fL (80.0-98.0); Mean Platelet Volume 10.1 fL (9.4-12.4); Monocytes Absolute Auto 0.5 X10*3/uL (0.1-1.2); Monocytes Percent Auto 6.2 % (2-11); Neutrophils Absolute Auto 5.4 x10*3/uL (2.0-8.3); Neutrophils Percent Auto 65.4 % (45-73); Platelet Count 241 X10*3/uL (160-400); Red Blood Count 6.01 X10*6/uL (4.60-5.80); Red Cell Distribution Width 11.8 % (11.0-16.0); White Blood Count 8.2 X10*3/uL (4.8-10.8)
[2023-04-20 13:26] LABS: Appearance Urine Clear; Color Urine Yellow; Glucose Urine UA Negative (Negative); Leukocyte Esterase Urine Negative (Negative); Nitrite Urine Negative (Negative); Specific Gravity - Urine 1.025 (1.005-1.025); Urine Blood Negative (Negative); Urine Ketones Negative (Negative); Urine Protein Negative (Neg-Trace)
[2023-04-20 14:41] LABS: Alanine Aminotransferase 85 U/L (0-40); Albumin Level 4.7 g/dL (3.5-5.0); Alkaline Phosphatase 91 U/L (39-117); Anion Gap 14 (12-20); Aspartate Amino Transferase 183 U/L (5-37); Bilirubin Total 0.4 mg/dL (0.0-1.0); Blood Urea Nitrogen 19 mg/dL (9-16); Calcium 10.2 mg/dL (8.4-10.2); Carbon Dioxide 26 mmol/L (22-29); Chloride 105 mmol/L (96-108); Cholesterol 207 mg/dL (<200); Estimated Glomerular Filt Rate > 60; Glucose Fasting 100 mg/dL (60-99); HDL Cholesterol 40 mg/dL (>40); LDL Cholesterol Calculated 148 mg/dL (<100); Potassium 4.2 mmol/L (3.3-5.1); Sodium 141 mmol/L (135-145); Total Protein 7.4 g/dL (6.5-8.0); Triglycerides 96 mg/dL (<150)
[2023-04-20 14:59] LABS: TSH reflex Free T4 0.83 uIU/mL (0.32-4.0)
== END 2023-04-20 10:15 | disposition home or self-care (01) ==
LOC: HO.HMGCLDS 10:14
PROVIDERS: PCP Nurse Practitioner Family; Visit Provider Nurse Practitioner Family
DX: Z00.00 Encounter for general adult medical examination without abnormal findings (principal); F10.10 Alcohol abuse, uncomplicated
CPT/HCPCS: 36415; 80053; 80061; 81003; 84443; 85025

== ENCOUNTER 2023-04-27 10:54 | Outpatient (AMB) | payer BC, SELFPAY ==
--- NOTE | 2023-04-27 10:55 | AM.OFFVISNUR ---
Intake Vital Signs 04/27/23 11:00 BP 118/78 Blood Pressure Location Lt radial Position Sitting Pulse 69 Pulse Source Pulse Oximeter Pulse Oximetry (%) 98 Oxygen Delivery Method Room Air Intake Visit Reasons: mervin inj Intake Note: The patient presents for a fredo Floor Technician Required: No Allergies No Known Allergies Allergy (Verified 04/27/23 10:56) Do you need a note to return to daycare/school/sports/work: No Coding
[2023-04-27 11:00] VITALS: BP 118/78; PULSE 69; O2SAT 98
== END 2023-04-27 11:41 | disposition home or self-care (01) ==
LOC: HO.HCC 10:54
PROVIDERS: PCP Nurse Practitioner Family
DX: F10.20 Alcohol dependence, uncomplicated (principal)
CPT/HCPCS: J2315

== ENCOUNTER → 2023-04-27 10:54 | Outpatient (BNVA) | payer BC, SELFPAY | PROVIDERS: PCP Nurse Practitioner Family | DX: F10.20 Alcohol dependence, uncomplicated (principal) | CPT/HCPCS: 96372 ==

== ENCOUNTER 2023-05-17 08:27 | Outpatient (REF) | payer BC, SELFPAY ==
--- NOTE | ~2023-05-17 | US_ITS ---
EXAMINATION: US ABDOMEN COMPLETE CLINICAL INFORMATION: Abnormal levels of other serum enzymes. COMPARISON: None available. TECHNIQUE: Real-time imaging of the abdominal viscera. FINDINGS: PANCREAS: Normal. ABDOMINAL AORTA: The proximal, mid, and distal segments are normal in caliber. INFERIOR VENA CAVA: Visualized portions are normal. LIVER: Normal. The liver is normal in size. The liver contour is normal. Parenchymal echogenicity is normal. No focal hepatic lesion. There is no intrahepatic biliary duct dilatation seen. GALLBLADDER: Normal. The gallbladder is physiologically distended without evidence of stones, sludge, polyps, wall thickening or pericholecystic fluid. COMMON BILE DUCT: Normal in caliber measuring 0.12 cm in diameter. RIGHT KIDNEY: Normal. No hydronephrosis. No renal calculi or focal parenchymal lesions. The kidney measures 12.0 cm in maximum dimension. LEFT KIDNEY: Normal. No hydronephrosis. No renal calculi or focal parenchymal lesions. The kidney measures 13.1 cm in maximum dimension. SPLEEN: The spleen is enlarged. The spleen measures 14.3 cm in maximum dimension. FREE FLUID: None. US/US abdomen complete IMPRESSION: Splenomegaly measuring 14.3 cm in span.
[2023-05-18 03:24] LABS: HBS Num1 0.65 mIU/mL (0-7.99); HBc Num1 0.08 S/CO (0.00-0.79); HBsAGNum1 0.47 S/CO (0.00-0.99); Hepatitis A Antibody IgM 0.14 Index (0-0.79); Hepatitis B Core Antibody Nonreactive (Nonreactive); Hepatitis B Surface Antigen Negative (Negative); ~Hepatitis A Antibody IgM Nonreactive (Nonreactive); ~Hepatitis B Surface Antibody NONREACTIVE (Nonreactive); ~Hepatitis C Antibody Nonreactive (Nonreactive)
== END 2023-05-17 08:28 | disposition home or self-care (01) ==
LOC: HO.HMGCX 08:27
PROVIDERS: PCP Nurse Practitioner Family; Visit Provider Nurse Practitioner Family
DX: R74.8 Abnormal levels of other serum enzymes (principal)
CPT/HCPCS: 36415; 76700; 86704; 86706; 86709; 86803; 87340

== ENCOUNTER 2023-05-25 10:32 | Outpatient (AMB) | payer BC, SELFPAY ==
--- NOTE | 2023-05-25 10:32 | AM.OFFVISNUR ---
Intake Vital Signs 05/25/23 10:41 BP 118/78 Blood Pressure Location Lt radial Position Sitting Pulse 49 L Pulse Source Pulse Oximeter Pulse Oximetry (%) 99 Oxygen Delivery Method Room Air Intake Visit Reasons: mervin inj Intake Note: the patient presents for a mervin inj Director Orange Required: No Allergies No Known Allergies Allergy (Verified 05/25/23 10:42) Do you need a note to return to daycare/school/sports/work: No Nursing Note Patient presents for Vivitrol injection. Vivitrol 380mg IM administered to L gluteal muscle. He tolerated well. Reports last drink was 5 months ago. Patient reports discontinued use of PO Campral. He reports feeling well, feels more in control of his sobriety. Reports that he stopped attending AA and seeking therapy services as he did not feel they were beneficial to him. He reports finding motivation to recover in God and his pepe. He reports it feels different this time with regards to his recovery. He reports having a better, stronger mindset that allows him to look forward to the future instead of dwelling on the past. He expressed interest in decreasing frequency of Vivitrol injections from Q4 weeks to Q8 weeks. Discussed with ODALYS Ca who confirms it's okay. Plan for patient to schedule next injection in 8 weeks, but understands he can call with any questions or concerns in the meantime. Office Meds Vivitrol 380 mg intramuscular suspension,extended release Performing Provider: Lanny Dawson CNP Performing Location: [facility] Administered by: Patricia Fernandez on 05/25/23 11:07 Dose Route Admin Location Dispensed Lot Number Expiration Date [facility] Drawer Fitter 380 mg IM LG 380 mg [id number] 08/19/25 [id number] [employer] Comments: Tolerated injection well Coding Assessment & Plan Assessment & Plan Orders: Orders AMB Naltrexone Injection Patient Supplied Today F10.20 - Alcohol dependence, uncomplicated
[2023-05-25 10:41] VITALS: BP 118/78; PULSE 49; O2SAT 99
== END 2023-05-25 11:08 | disposition home or self-care (01) ==
PROVIDERS: PCP Nurse Practitioner Family
DX: F10.20 Alcohol dependence, uncomplicated (principal)
CPT/HCPCS: J2315

== ENCOUNTER → 2023-05-25 10:32 | Outpatient (BNVA) | payer BC, SELFPAY | PROVIDERS: PCP Nurse Practitioner Family | DX: F10.20 Alcohol dependence, uncomplicated (principal) | CPT/HCPCS: 96372 ==

== ENCOUNTER → 2023-06-08 13:51 | Outpatient (BNV) | payer BC, SELFPAY | PROVIDERS: PCP Nurse Practitioner Family; Visit Provider Internal Medicine Medical Oncology | DX: R16.1 Splenomegaly, not elsewhere classified (principal) | CPT/HCPCS: 99204; 99213 ==

== ENCOUNTER 2024-02-20 10:51 | Outpatient (AMB) | payer OTHER, SELFPAY ==
--- NOTE | 2024-02-20 10:56 | MHC.PC.OV ---
Vital Signs 02/20/24 10:59 Height 6 ft 1 in Weight 209 lb BMI 27.6 BP 120/74 Blood Pressure Location Rt brachial Position Sitting Pulse 54 Pulse Source Pulse Oximeter Pulse Oximetry (%) 98 Oxygen Delivery Method Room Air Intake Visit Reasons: PE Intake Note: Patient here for physical exam. Allergies No Known Allergies Allergy (Verified 02/20/24 11:17) Medication List - Last Reconciled 02/20/24 by ANTONETTE Cardona finasteride 5 mg PO DAILY rosuvastatin 40 mg PO DAILY Tobacco use date assessed: 02/20/24 Dental Screening Dental Screen Date: 02/20/24 Did you have a dental visit in the last 12 months?: No Did you have a dental problem in the last 6 months where you did not have access to dental care?: No Was dental information given to patient?: Patient has dentist HPI PE HPI Details Pt is here for a PE. Will order labs. pt sees derm on a regular basis [facility] Medical History Alcohol withdrawal Alcohol abuse Depression, major, recurrent Family History Brother Substance use disorder Maternal Grandfather Melanoma Social History Housing: House Alcohol intake: current Alcohol intake frequency: 3 or more drinks per day Alcohol type: hard liquor Patient Tobacco Use Status: Never used Tobacco e-Cigarette/Vaping Use: Never Used Current occupational status: employed Cognitive needs: No Hearing needs: No Vision needs: No Questionnaire PHQ-9 Over the last 2 weeks, how often have you been bothered by any of the following problems? 1. Little interest or pleasure in doing things: several days 2. Feeling down, depressed, or hopeless: several days 3. Trouble falling or staying asleep, or sleeping too much: several days 4. Feeling tired or having little energy: several days 5. Poor appetite or overeating: several days 6. Feeling bad about yourself - or that you are a failure or have let yourself or your family down: several days 7. Trouble concentrating on things, such as reading the newspaper or watching television: several days 8. Moving or speaking so slowly that other people could have noticed. Or the opposite - being so fidgety or restless that you have been moving around a lot more than usual: several days 9. Thoughts that you would be better off or of hurting yourself in some way: not at all Total score: 8 Depression Screening Interpretation: Negative Depression Screening Done: Yes 30070 - PHQ-9 Billing: Yes Source: Developed by Drs. Devin Hsu, Jacquelyn Jo, Varinder Sanabria and colleagues, with an educational apollo from [employer]. Thrive Questionnaire Date Thrive assessed: 02/20/24 I am a: Patient What is your living situation today?: I have a steady place to live Within the past 12 months, did the food you bought not last and you didn't have the money to get more?: Never true Within the past 12 months, did you worry whether your food would run out before you got money to buy more?: Never true Do you have trouble paying for medicines?: No Do you have trouble getting transportation to medical appointments?: No Do you have trouble paying your heating and electricity bill?: No Do you have trouble taking care of your child, family member or friend?: No Do you have trouble with day-to-day activities such as bathing, preparing meals, shopping, managing finances, etc.?: No Are you currently unemployed and looking for a job?: No Are you interested in more education?: No Please select the resources that you would like help with: None Currently or been in a relationship where the following occur: No concerns reported THRIVE Score: 0 AUDIT C Alcohol Use Questionnaire (AUDIT-C) 1. How often do you have a drink containing alcohol?: Never 2. How many drinks containing alcohol do you have on a typical day when you are drinking?: 1 or 2 3. How often do you have six or more drinks on one occasion?: Never Total Score: 0 Score Reviewed/Action Taken: No GHULAM-7 AMB Questionnaire GHULAM-7 Date GHULAM - 7 assessed: 02/20/24 Feeling nervous, anxious, or on edge: 1 = Several days Not being able to stop or control worryin = Several days Worrying too much about different things: 1 = Several days Trouble relaxin = Several days Being so restless that it is hard to sit still: 1 = Several days Becoming easily annoyed or irritable: 1 = Several days Feeling afraid as if something awful might happen: 0 = Not at all Total GHULAM-7 score (0-4 normal; 5-9 mild; 10-14 moderate; 15-21 severe): 6 Source: Developed by Drs. Devin Hsu, Jacquelyn Jo, Varinder Sanabria and colleagues, with an educational apollo from [employer]. GHULAM-7 Assessment Billing GHULAM-7 Assessment Tool: GHULAM-7 Assessment 47544 Review of Systems Const Denies chills and Denies fever(s) Eyes Denies blurry vision ENT Denies vertigo, Denies dizziness and Denies sore throat Card Denies chest pain at rest, Denies chest pain with activity, Denies diaphoresis, Denies dyspnea and Denies dyspnea on exertion Resp Denies cough, Denies dyspnea, Denies dyspnea on exertion and Denies wheezing GI Denies abdominal pain, Denies melena, Denies hematochezia, Denies constipation, Denies diarrhea and Denies loose stools Denies hematuria Musc Denies numbness and Denies tingling Skin/Breast Denies lesions Neuro Denies vertigo, Denies dizziness, Denies numbness and Denies tingling Psych Denies anxiety, Denies depression, Denies homicidal ideation, Denies suicidal ideation and Denies other (substance abuse) Aller/Immun Denies wheezing Physical exam (Primary Care) Vital Signs: Last Vital Signs Pulse 54 02/20/24 10:59 BP 120/74 02/20/24 10:59 Pulse Ox 98 02/20/24 10:59 Oxygen Delivery Method Room Air 02/20/24 10:59 BMI result Body Mass Index 27.6 Tobacco/Smoking Status: Tobacco use Status Tobacco use date assessed 02/20/24 02/20/24 11:04 Patient Tobacco Use Status Never used Tobacco 02/20/24 10:58 e-Cigarette/Vaping Use Never Used 02/20/24 10:58 PHQ-9: PHQ-9 Score PHQ-9: Total score 8 02/20/24 11:06 Depression Screening Interpretation: Negative Thrive Assessment: Date of Thrive Assessment Date Thrive assessed 02/20/24 02/20/24 11:06 Currently or been in a relationship where the following occur: No concerns reported Const General: cooperative Nutritional Appearance: well nourished Orientation/consciousness: patient oriented x3 HENMT Head: Yes normal to inspection, Yes normocephalic and Yes atraumatic Ears: TM's normal bilaterally Eyes General: appearance normal, both eyes and all related structures Alignment and Position: alignment normal and position normal Neck Neck: Yes normal visual inspection and Yes no lymphadenopathy Thyroid: Thyroid normal Resp Effort & Inspection: normal respiratory effort Auscultation: clear to auscultation bilaterally Cardio Rate: regular rate Rhythm: regular rhythm Heart sounds: S1 normal heart sound present, S2 normal heart sound present and no murmurs GI Palpation (GI): Soft to palpation and nontender Auscultation: normal bowel sounds Skin Rashes: no rashes Neuro General: patient oriented x3, moves all extremities, no focal motor deficits and deep tendon reflexes 2+ bilaterally Romberg Test: Negative Psych Appearance: grossly normal Mental Status: mental status grossly normal Speech and movement: Normal speech and movement present Affect: normal affect Attitude: cooperative Thought process: Normal thought process present Thought content: Normal thought content present Insight: Good insight present (Psych) Judgement: Good judgement present (Psych) Assessment and Plan Assessment & Plan (1) Physical exam: Code(s): Z.00 - Encounter for general adult medical examination without abnormal findings Plan The patient agreed to the use of a medical transcriber for this encounter. Scribed for KAVITHA Mccartney-BHUMI by Iva Ortega medical transcriber, on 02/20/2024 at 11:20 EST. Orders: Orders Complete Blood Count Auto Diff Today Z00.00 - Encounter for general adult medical examination without abnormal findings UA CC w/rflx Micro + Cult Today Z00.00 - Encounter for general adult medical examination without abnormal findings Lipid Panel Today Z00.00 - Encounter for general adult medical examination without abnormal findings Comprehensive [place]. Panel Fast Today Z00.00 - Encounter for general adult medical examination without abnormal findings TSH reflex Free T4 Today Z00.00 - Encounter for general adult medical examination without abnormal findings Coding Level of Care Code Est Pt Prev Care 40-64y(28688) Diagnoses Physical exam Z00.00 Additional Codes GHULAM-7 Assessment Billing - GHULAM-7 Assessment Tool: GHULAM-7 Assessment [id number] ([id number])
[2024-02-20 10:59] VITALS: BP 120/74; PULSE 54; O2SAT 98; BMI 27.6
== END 2024-02-20 11:56 | disposition home or self-care (01) ==
PROVIDERS: PCP Nurse Practitioner Family; Visit Provider Nurse Practitioner Family
DX: Z00.00 Encounter for general adult medical examination without abnormal findings (principal)
CPT/HCPCS: 99396